=== PATIENT | female | born 1990 | race Caucasian/White ===

== ENCOUNTER 2017-04-15 19:36 | Emergency (ER) | payer BC ==
[~2017-04-15] VITALS: Ht 147.3 cm; Wt 49.9 kg
[~2017-04-15 19:36] MED LIST: AUGMENTIN 875 M1 TAB PO; BACTRIM DS 8001 TA1 PO; DARVOCET N 1001 TAB PO; DIFLUCAN150 MG PO; HYDROCODONE BIT1 T11 PO; IBU-4400 MG PO; IUD; MACROBID100 M1 PO; MOTRIN800 MG PO; TRIMOX500 MG PO; VOLTAREN50 M1 PO; ZITHROMAX Z PA250 MG PO; Zofran4 MG PO
[2017-04-15] MEDS ORDERED: ALLEGRA-D 24 H1 EACH PO (20:31)
[2017-04-15] MEDS ORDERED: PROAIR HFA8.5 GM INH (20:31)
[2017-04-15] MEDS ORDERED: TESSALON PERLE100 M1 PO (20:31)
[2017-04-15] MEDS ORDERED: HYCODAN/HYDROMET5 ML PO (20:31)
== END 2017-04-15 20:41 | disposition home or self-care (01) ==
LOC: ED 19:36
DX: J11.1 Influenza due to unidentified influenza virus with other respiratory manifestations (principal)

== ENCOUNTER 2019-04-23 14:00 | Emergency (ER) | payer BC ==
[~2019-04-23] VITALS: Ht 147.3 cm; Wt 53.5 kg
[~2019-04-23 14:00] MED LIST changes: +ALLEGRA-D 24 H1 EACH PO; +HYCODAN/HYDROMET5 ML PO; +PROAIR HFA8.5 GM INH; +TESSALON PERLE100 M1 PO
[2019-04-23 14:54] LABS: BASO % 0.3 % (0.0-1.0); EOS # 0.1 10*3/uL (0.0-0.4); EOS % 1.1 % (1.0-4.0); HEMATOCRIT 35.6 % (37.0-47.0); HEMOGLOBIN 11.9 g/dl (12.0-16.0); LYMPH % 17.2 % (27.0-41.0); MEAN CELL VOLUME 94.4 fl (81.0-99.0); MEAN CORPUSCULAR HGB 31.6 pg (27.0-31.0); MEAN CORPUSCULAR HGB CONC 33.4 g/dl (33.0-37.0); MEAN PLATELET VOLUME 10.2 fl (9.6-12.3); MONO # 0.5 10*3/uL (0.1-1.0); MONO % 4.1 % (3.0-9.0); NEUT # 8.7 10*3/uL (2.3-7.9); NEUT % 76.6 % (47.0-73.0); PLATELET COUNT AUTOMATED 304 10*3/uL (130-400); RED BLOOD COUNT 3.77 10*6/uL (4.10-5.10); RED CELL DISTRI WIDTH 12.4 % (0-14.5); WHITE BLOOD COUNT 11.4 10*3/uL (4.8-10.8)
[2019-04-23 15:10] LABS: ALBUMIN 3.2 gm/dl (3.1-4.5); ALKALINE PHOSPHATASE 45 U/L (45-117); BUN 6 mg/dl (7-24); CHLORIDE 103 mmol/L (98-107); CREATININE 0.55 mg/dL (0.55-1.02); POTASSIUM 4.1 mmol/L (3.5-5.1); SGOT/AST 12 IU/L (3-35); SGPT/ALT 20 U/L (12-78); SODIUM 139 mmol/L (136-145); TOTAL PROTEIN 7.2 gm/dL (6.4-8.2)
[2019-04-23 15:13] LABS: BILIRUBIN NEGATIVE (NEGATIVE); BLOOD 2+ (NEGATIVE); CLARITY SL CLOUDY (CLEAR); COLOR YELLOW (YELLOW); GLUCOSE NEGATIVE (NEGATIVE); KETONE NEGATIVE (NEGATIVE); LEUKO ESTERASE NEGATIVE (NEGATIVE); NITRITE NEGATIVE (NEGATIVE); PH 6.5 (5.0-9.0); UROBILINOGEN 0.2 E.U./dl (0.2-1.0)
[2019-04-23 15:22] LABS: BACTERIA 3+; EPITHELIAL CELLS 31-40; MUCOUS 1+; RBC 0-2 rbc/hpf (0-2)
== END 2019-04-23 18:57 | disposition home or self-care (01) ==
LOC: ED 14:00
PROVIDERS: Physician Assistant
DX: O26.891 Other specified pregnancy related conditions, first trimester (principal); R55 Syncope and collapse; R51 Headache; Z3A.12 12 weeks gestation of pregnancy